=== PATIENT | male | born 1960 | race Hispanic/Latino ===

== ENCOUNTER 2019-05-03 06:32 | Emergency (ER) | payer OTHER, SELFPAY ==
--- NOTE | ~2019-05-03 | CT_ITS ---
EXAMINATION: [facility] lum w DATE: 05/03/2019 07:06 INDICATION: Kicked in the back by a horse. TECHNIQUE: Computed tomography (CT) of the chest, abdomen, and pelvis as well as the thoracic and lum bar spine was performed with 100 mL Omnipaque-350 intravenous contrast. Automated exposure control an d iterative reconstruction technique were employed. The dose-length product was 614.16 mGy-cm. COMPARISON: None FINDINGS: CHEST CT: Fractures of the posterior 9th-12th ribs with up to 3 mm displacement. Nondisplaced fractures of the Asymmetric swelling of the overlying left paraspinal musculature. Small left pleural effusion with mi nimal dependent edema in the left lower lobe. No other airspace disease, pulmonary edema, pneumothora x or right pleural effusion. Heart size is normal. No pericardial effusion. No pathologically enlarge d thoracic lymphadenopathy. ABDOMEN/PELVIS CT: A couple hepatic cysts the larger measuring 4.3 cm. Gallbladder, spleen, pancreas, bilateral adrenal glands and kidneys are normal. Bowels including the appendix are normal. Bladder is normal. Small annita ateral fat-containing inguinal hernias. Vasculature in the abdomen and pelvis is unremarkable. No ret roperitoneal hematoma or free intraperitoneal gas or fluid. Bone island in the left innominate bone. THORACIC AND LUMBAR SPINE: Normal alignment of the thoracic and lumbar spine. Mild likely physiologic anterior wedging at T11 an d T12. Vertebral body heights are otherwise normal. Coronally oriented nondisplaced fractures across the spinous processes of T10 and T11. Non to minimally displaced fractures of the left transverse pro cesses of T10, T11, T12 and L1. Mild disc height loss at L4-L5 with disc bulges at L2-L3 through L5-S 1. This most prominent at L3-L4 cord appears to result in at least moderate spondylosis. IMPRESSION: 1. Centimeter minimally displaced fractures of multiple posterior left-sided ribs as well as left tra nsverse process and spinous processes fractures at a few levels at the thoracolumbar junction. 2. Small left pleural effusion. No pneumothorax. 3. No acute intra-abdominal/pelvic process. Reviewed, dictated and finalized at location A. HICS PROGRAMMER IMPRESSION: 1. Centimeter minimally displaced fractures of multiple posterior left-sided ri bs as well as left transverse process and spinous processes fractures at a few levels at the thoracolumbar junction. 2. Small left pleural effusion. No pneumothorax. 3. No acute intra-abdominal/pelvic process.
[2019-05-03 06:31] VITALS: BP 131/92; PULSE 67; RESP 30; TEMP 36.5; O2SAT 100
--- NOTE | 2019-05-03 06:46 | ED.BACK ---
HPI - Back Pain/Injury General Chief Complaint: Back Pain/Injury Stated Complaint: KICKED BY HORSE Source: RN notes reviewed History of Present Illness HPI Narrative: Patient presents emergency department from work for trauma. Patient states he was kicked by a horse in the left mid back just prior to arrival. Patient is been having severe pain since that time. He denies any other trauma or injury. Denies striking his head. Patient states he is feeling fine prior to the trauma. Denies any use of blood thinners. Patient does note back pain as well as abdominal pain. Denies any vision changes, chest pain, shortness of breath numbness or tingling in the extremities or any other symptoms of concern Patient is primarily Yoruba-speaking and spanish interpreter was used via iPad Related Data Allergies Allergy/AdvReac Type Severity Reaction Status Date / Time No Known Allergies Allergy Verified 05/03/19 06:39 Review of Systems Review of Systems: Narrative: Gen.: Denies fevers or chills Eyes: Denies eye pain or visual change ENT: Denies congestion Respiratory: Denies shortness of breath or cough CV: Denies chest pain or palpitations GI: Reports abdominal pain, denies vomiting denies bladder incontinence Musculoskeletal: See HPI Neuro: Denies numbness, tingling, weakness or focal weakness Skin: Denies rash Except as documented, all other systems reviewed and negative PMFSH Past Medical History Medical History (Updated 05/03/19 @ 08:11 by Chavo Rajput DO) Patient denies medical problems Social History Social History (Updated 05/03/19 @ 06:48 by Chavo Rajput DO) Smoking status: Never smoker Exam Narrative: Exam Narrative: APPEARANCE: Well appearing, no apparent distress, well-nourished. HEENT: normocephalic atraumtaic. No facial tenderness EYES: PERRL NECK: Supple. No midline tenderness to palpation. Full range of motion without pain RESPIRATORY: No respiratory distress. Clear to auscultation bilaterally CARDIOVASCULAR: Regular rate and rhythm without murmurs rubs or gallops. ABDOMINAL: Soft, nondistended, diffusely tender to palpation MUSCULOSKELETAl: Moves all extremities. No tenderness to palpation of bilateral upper and lower extremities. No clubbing cyanosis or edema Back: No midline thoracic or lumbar tenderness to palpation tender palpation over the left mid back over the left ribs T8-12 Pelvis: Stable, nontender NEURO: Awake and alert ?3. Follows commands. Speech normal. No focal deficits. SKIN:: Warm, dry. Normal Color Course Course Emergency Course: Discussed with Dr. Langley at [facility]. Excepts transfer at this time Discussed with patient plan for transfer and is in agreement at this time Vital Signs Vital signs: Vital Signs Temperature 97.7 F 05/03/19 06:31 Pulse Rate 67 05/03/19 06:31 Respiratory Rate 30 H 05/03/19 06:31 Blood Pressure 131/92 H 05/03/19 06:31 Pulse Oximetry 100 05/03/19 06:31 Temperature 97.7 F 05/03/19 06:31 Pulse Rate 65 05/03/19 08:13 Respiratory Rate 16 05/03/19 08:13 Blood Pressure 119/81 05/03/19 08:13 Pulse Oximetry 100 05/03/19 08:13 MDM - Back Pain/Injury Lab Data Result diagrams: 05/03/19 06:46 05/03/19 06:59 Labs: Lab Results 05/03/19 05/03/19 05/03/19 Range/Units 06:46 06:46 06:47 WBC 8.0 (4.5-10.0) K/mm3 RBC 4.83 (4.6-6.20) M/mm3 Hgb 14.9 (14.0-18.0) g/dL Hct 44.1 (42.0-52.0) % MCV 91.3 (80-100) fl MCH 30.8 (26-34) pg MCHC 33.8 (32-36) g/dl RDW 13.0 (11.5-14.5) % Plt Count 262 (150-375) k/mm3 MPV 9.8 (7.4-10.4) fl Immature Gran % (Auto) 0.6 H (0-0.5) % Neut % (Auto) 59.1 (45.5-73.1) % Lymph % (Auto) 31.2 (18.3-44.2) % [place] % (Auto) 6.2 (2.6-8.5) % Eos % (Auto) 2.2 (0-4.4) % Baso % (Auto) 0.7 (0.2-1.2) % Lymph # (Auto) 2.51 (0.9-3.2) K/mm3 [place] # (Auto) 0.5 (0.1-0.6) K/mm3 Eos #
[2019-05-03] MEDS: MORPHINE SULFATE 4 MG/ML INJ IV PUSH (06:53)
[2019-05-03] MEDS: ONDANSETRON INJ 4 MG/2 ML VIAL IV PUSH (06:54)
[2019-05-03] MEDS: LACTATED RINGERS 1,000 ML 999 ML IV CONT (06:54)
--- NOTE | 2019-05-03 06:54 | PC.NURSE ---
pt down to ct
[2019-05-03 06:57] LABS: Basophils Absolute Auto 0.1 K/mm3 (0.0-0.1); Basophils Percent Auto 0.7 % (0.2-1.2); Eosinophils Absolute Auto 0.2 K/mm3 (0-0.3); Eosinophils Percent Auto 2.2 % (0-4.4); Hematocrit 44.1 % (42.0-52.0); Hemoglobin 14.9 g/dL (14.0-18.0); Immature Granulocyte Absolute 0.05 K/mm3 (0.00-0.031); Immature Granulocyte Percent A 0.6 % (0-0.5); Lymphocytes Absolute Auto 2.51 K/mm3 (0.9-3.2); Lymphocytes Percent Auto 31.2 % (18.3-44.2); Mean Corpuscular HGB Conc 33.8 g/dl (32-36); Mean Corpuscular Hemoglobin 30.8 pg (26-34); Mean Corpuscular Volume 91.3 fl (80-100); Mean Platelet Volume 9.8 fl (7.4-10.4); Monocytes Absolute Auto 0.5 K/mm3 (0.1-0.6); Monocytes Percent Auto 6.2 % (2.6-8.5); Neutrophils Absolute Auto 4.7 K/mm3 (1.3-6.7); Neutrophils Percent Auto 59.1 % (45.5-73.1); Platelet Count Result 262 k/mm3 (150-375); Red Blood Count 4.83 M/mm3 (4.6-6.20)
[2019-05-03 07:01] LABS: Blood Urea Nitrogen 19 mg/dL (8-26); Estimated Glomerular Filt Rate > 60
[2019-05-03 07:08] LABS: Alanine Aminotransferase 19 U/L (4-50); Alkaline Phosphatase 75 U/L (38-126); Aspartate Amino Transferase 27 U/L (17-59); Bilirubin,Total 1.8 mg/dL (0.2-1.3); Blood Urea Nitrogen 19 mg/dL (9-20); Calcium 8.7 mg/dL (8.4-10.2); Carbon Dioxide 24 mmol/L (22-30); Chloride 104 mmol/L (98-107); Estimated Glomerular Filt Rate > 60; Glucose 131 mg/dL (75-110); INR 0.9; Potassium 3.6 mmol/L (3.4-5.0); Prothrombin Time 12.2 Seconds (11.1-14.7); Sodium 138 mmol/L (137-145)
[2019-05-03 07:09] LABS: Partial Thromboplastin Time 21.8 SECONDS (22.3-36.8)
[2019-05-03 07:30] VITALS: RESP 18; O2SAT 98
[2019-05-03 08:13] VITALS: BP 119/81; PULSE 65; RESP 16; O2SAT 100
[2019-05-03 08:19] VITALS: BP 111/77; PULSE 71; RESP 18; O2SAT 100
--- NOTE | 2019-05-03 08:25 | PC.NURSE ---
Called [facility] to transport patient to [facility]... ETA 10 minutes.
[2019-05-03] MEDS: MORPHINE SULFATE 2 MG/ML INJ IV PUSH (08:49)
--- NOTE | 2019-05-05 15:59 | PC.NURSE ---
Vishnu, tono & cell phone from ER safe given to Brian Leavitt to cook starch over to [place] [id number] trauma floor where pt was transferred to from this ER.
== END 2019-05-03 08:50 | disposition short-term general hospital (02) ==
PROVIDERS: Emergency Provider Emergency Medicine
DX: S32.019A Unspecified fracture of first lumbar vertebra, initial encounter for closed fracture (principal); S22.079A Unspecified fracture of T9-T10 vertebra, initial encounter for closed fracture; S22.089A Unspecified fracture of T11-T12 vertebra, initial encounter for closed fracture; S22.42XA Multiple fractures of ribs, left side, initial encounter for closed fracture; W55.12XA Struck by horse, initial encounter
CPT/HCPCS: 36415; 71260; 72129; 72132; 74177; 80053; 85025; 85610; 85730; 86850; 86900; 86901; 96361; 96374; 96375; 96376; 99285; J2270; J2405; J7120; Q9967